=== PATIENT | female | born 1995 | race African-American/Black ===

== ENCOUNTER 2024-12-09 13:17 | Emergency (ER) | payer MEDICAID ==
[~2024-12-09] VITALS: Ht 172.7 cm; Wt 105.0 kg
[2024-12-09 13:23] VITALS: TEMP 36.9; O2SAT 100
[2024-12-09] MEDS: KETOROLAC 15MG/ML VIAL IM ONE (15:05)
[2024-12-09] MEDS: LIDOCAINE 5% PATCH TOP SCH (15:05)
[2024-12-09] MEDS ORDERED: NAPR-1176 MT (15:14)
[2024-12-09] MEDS ORDERED: LIDO-53 TP (15:14)
[2024-12-09 15:22] VITALS: BP 141/83; PULSE 68; RESP 18; O2SAT 100
== END 2024-12-09 15:33 | disposition home or self-care (01) ==
LOC: ER 13:17
DX: M54.50 Low back pain, unspecified (principal); Z79.1 Long term (current) use of non-steroidal anti-inflammatories (NSAID); Z88.1 Allergy status to other antibiotic agents; Z88.2 Allergy status to sulfonamides; Z88.5 Allergy status to narcotic agent
CPT/HCPCS: 99283; 81025; 96372; J1885; 99285